=== PATIENT | female | born 1955 | race Caucasian/White ===

== ENCOUNTER 2018-02-24 17:26 | Observation (INO) ==
[2018-02-24] MEDS ORDERED: Nitroglycerin 1 INCH/GM PACKET TP ONE (17:30)
--- NOTE | 2018-02-24 17:32 | Emergency Department Note ---
Disposition Clinical Impression: Chest pain Qualifiers: Chest pain type: precordial pain Qualified Code(s): R07.2 - Precordial pain Disposition: Admitted As Inpatient Condition: Good Referrals: Arlene Piper CNP [Advanced Practice Nurse] - Forms: ED Satisfaction Letter Time of Disposition: 19:49 Chest Pain HPI - General Chief Complaint: ED Chest Pain Stated Complaint: Bilat shoulder pain, chest pain Time Seen by Provider: 02/24/18 17:30 Source: patient, EMS, other (Family care provider) Mode of arrival: EMS Limitations: no limitations Vital Signs Reviewed: Yes Nursing Notes Reviewed: Yes - History of Present Illness HPI Narrative: Patient states she has been having a headache in the upper back aches since yesterday. Today she has had a persistent "chest tightness" that is been present all day since awakening. She has had some nausea with this without vomiting as well as some shortness of breath. She denies diaphoresis. She states she has had a history of some jaw trouble in the past but she has had more jaw discomfort today as well. She developed some tingling of her face and hands. She decided to check her blood pressure and had a reading of 170/100. This blood pressure prompted her to go to her primary care provider. She received a dose of nitroglycerin and was referred here by EMS. She has received a second dose of nitroglycerin as well as 324 mg of aspirin. She states the tightness had been a 7-8 on a scale of 1-10 and she currently has no chest tightness. She still has some backache and headache. She denies that she has been having cough, fevers or chills. She has a lower extremity swelling , immobilization or injury. She denies any personal history of coronary artery disease or dysrhythmia. She denies history of diabetes, hypertension, elevated cholesterol, smoking, obesity, DVT or PE. She denies a family history of coronary artery disease. She does relate a previous history of some TIAs for which she has not had any problem since repair of a patent foramen ovale 6 years ago. Her chief complaint at this time is that she feels "just washed out ". EMS did transmit an EKG 2. These demonstrated a normal sinus rhythm with a rate of 60. She had prominent artifact on both tracings. There are no acute ST or T-wave changes to suggest ischemia or infarction. These were performed at 5:08 and 5:14 PM. The reviews are on my interpretation. Pt complaint: chest pain Onset (ago): hour(s) (10) Duration: constant, now resolved Onset: during rest Pain Location: substernal Severity: moderate Severity scale (1-10): 7 Quality: tightness Pain Radiation: jaw/teeth Improves with: nitroglycerin Worsens with: nothing Associated symptoms: Reports: nausea, dyspnea. Denies: vomiting, diaphoresis, syncope, palpitations, fever, cough, leg swelling Treatments prior to arrival chest pain: aspirin, nitroglycerin, oxygen - Related Data Home Medications Medication Instructions Recorded Confirmed Topiramate [Topamax] 100 mg PO BID 11/08/15 HYDROcodone/Acet 5/325 mg [[place] 1 tab PO Q6-8H PRN 02/24/18 02/24/18 5-325 mg] Loratadine [Claritin] 10 mg PO DAILY 02/24/18 02/24/18 Allergies Allergy/AdvReac Type Severity Reaction Status Date / Time acetaminophen [From Percocet] Allergy Itching Verified 02/24/18 17:30 aspirin [From Percodan] Allergy Itching Verified 02/24/18 17:30 Oxycodone [From Percocet] Allergy Itching Verified 02/24/18 17:30 All systems ED: reviewed and negative except as stated. Chest Pain PMH - Past Medical History Medical history: Reports: migraine, TIA (Secondary to patent foramen ovale), other (Patent foramen ovale with repair). Denies: COPD, DVT, diabetes, hyperlipidemia, hypertension, myocardial infarction, pulmonary embolus, thyroid disease Surgical history: Reports: other (Repair of patent foramen ovale approximately 2011) Psychiatric history: Reports: no psych history - Social History Smoking Status: Never smoker Alcohol use: Reports: none Drug use: Reports: none Physical Exam - General Limitations: no limitations General appearance: alert, in no apparent distress - Head Head exam: atraumatic, normocephalic, normal inspection - Eye Eye exam: Present: normal appearance, PERRL, EOMI. Absent: conjunctival injection - ENT ENT exam: normal exam, normal oropharynx, mucous membranes moist - Neck Neck exam: Present: normal inspection, full ROM, trachea midline - Chest Chest inspection: Present: normal inspection, symmetric chest wall rise - Respiratory Respiratory exam: Present: normal lung sounds bilaterally. Absent: respiratory distress, wheezes, prolonged expiratory phase - Cardiovascular Cardiovascular exam: Present: regular rate, normal rhythm, normal heart sounds. Absent: tachycardia - Abdominal Exam Abdominal exam: Present: soft, Non-Tender, normal bowel sounds. Absent: tenderness, distention, guarding, rebound, rigidity - Extremities Exam Extremities exam: Present: normal inspection, full ROM, normal capillary refill. Absent: tenderness, pedal edema, calf tenderness - Expanded Lower Extremity Exam Neurovascular/Tendon exam: Present: normal capillary refill. Absent: motor deficit, sensory deficit, tendon deficit Gait: observed and normal - Back Exam Back exam: Present: normal inspection, full ROM. Absent: tenderness, CVA tenderness (R), CVA tenderness (L) - Neurological Exam Neurological exam: Present: alert, oriented X3 - Psychiatric Psychiatric exam: Present: normal affect, normal mood. Absent: agitated, anxious - Skin Skin exam: Present: warm, dry, intact, normal color. Absent: diaphoresis, pallor Course Course Narrative: 1822: With the elevated d-dimer, CT PE study has been ordered. She states she takes [place] at home for pain and she is been given a dose for her headache. 1944: Patient's presentation and all testing has been discussed with the patient and ultimately with Dr. Valderrama. Dr. Valderrama is agreeable with her observation at this facility. Verbal orders have been obtained for her observation. Vital Signs Temperature 98.8 F 02/24/18 17:33 Pulse Rate 58 02/24/18 17:33 Respiratory Rate 13 02/24/18 17:33 Blood Pressure 139/74 02/24/18 17:33 O2 Sat by Pulse Oximetry 95 02/24/18 17:33 Temperature 98.8 F 02/24/18 17:33 Pulse Rate 70 02/24/18 19:19 Respiratory Rate 18 02/24/18 19:19 Blood Pressure 141/72 02/24/18 19:19 O2 Sat by Pulse Oximetry 96 02/24/18 19:19 Oxygen Delivery Oxygen Delivery Room Air Chest Pain - Differential Diagnosis Likely: atypical chest pain, costalchondritis, chest pain - Lab Data Lab results reviewed: Yes I reviewed the patient's lab results. Result diagrams: 02/24/18 17:52 02/24/18 17:52 Lab Results 02/24/18 02/24/18 02/24/18 Range/Units 17:52 17:52 17:52 WBC 7.2 (4.3-11.1) K/mcL RBC 3.62 L (3.82-4.97) M/mcL Hgb 13.1 (11.5-15.4) g/dL Hct 38.3 (35.3-44.9) % MCV 105.8 H (83.0-100.0) fL MCH 36.2 H (28.0-33.3) pg MCHC 34.2 (31.6-35.5) g/dL RDW 11.9 (11.5-14.5) % Plt Count 252 (140-400) K/mcL MPV 9.7 (9.4-12.4) fL Immature Gran % 0.3 (0-4) % Seg Neutrophils % 53.4 % Lymphocytes % 35.5 % Monocytes % 9.4 % Eosinophils % 0.7 % Basophils % 0.7 % Neutrophils # 3.9 (1.6-8.9) K/mcL Lymphocytes # 2.6 (0.6-4.6) K/mcL Monocytes # 0.7 (0.0-1.3) K/mcL Eosinophils # 0.1 (0.0-0.6) K/mcL Basophils # 0.1 (0.0-0.2) K/mcL PT 10.5 (9.4-12.1) Seconds INR 0.9 APTT 30.1 (26.0-36.0) Seconds D-Dimer 655 H (0-500) ng/mLFEU Sodium 141 (136-145) mEq/L Potassium 4.2 (3.5-5.1) mEq/L Chloride 108 H (98-107) mEq/L Carbon Dioxide 26 (23-29) mEq/L BUN 16 (8-23) mg/dL Creatinine 1.11 (0.60-1.20) mg/dL Est GFR ( Amer) > 60 (> 60) Est GFR (Non-Af Amer) 50 L (> 60) BUN/Creatinine Ratio 14 (6-26) Glucose 95 (70-105) mg/dL Calculated Osmolality 293 (280-300) Calcium 9.3 (8.6-10.3) mg/dL Troponin I < 0.03 (< 0.04) ng/mL - Radiology Data Radiology results reviewed: Yes I reviewed the patient's radiology results. Single view chest x-ray is performed. This does not demonstrate evidence for infiltrate, effusion, pneumothorax, foreign body or heart failure. The cardiac silhouette is normal. I do not see abnormality to the osseous structures of the chest. This is on my interpretation. Impressions Chest X-Ray 02/24/18 17:31 IMPRESSION: No acute abnormality. D/ / Maxx Miranda / Maxx Miranda Interpreting Provider: Maxx Miranda Impressions Chest X-Ray 02/24/18 17:31 IMPRESSION: No acute abnormality. D/ / Maxx Miranda / Maxx Miranda Interpreting Provider: Maxx Miranda Chest CTA 02/24/18 18:23 IMPRESSION: No evidence of pulmonary embolism or acute pulmonary abnormality. D/ / Joanne Pinon MD / Joanne Pinon MD Interpreting Provider: Joanne Pinon MD - EKG Data EKG attestation: Yes I reviewed and interpreted this EKG. EKG shows normal: sinus rhythm, axis, intervals, QRS complexes, ST-T waves Rate: bradycardia (51) Heart block present: 1st Degree Interpretation: no acute changes, normal EKG Heart Score - Score History: Moderately Suspicious EKG: Non Specific repolarisation Disturbance Age: 45-65 Risk Factors: 1-2 risk factors Troponin: Less than normal limit HEART Score Total: 4
[2018-02-24 17:58] LABS: Basophils # 0.1 K/mcL (0.0-0.2); Basophils % 0.7 %; Eosinophils # 0.1 K/mcL (0.0-0.6); Eosinophils % 0.7 %; Hematocrit 38.3 % (35.3-44.9); Hemoglobin 13.1 g/dL (11.5-15.4); Immature Granulocytes % 0.3 % (0-4); Lymphocytes # 2.6 K/mcL (0.6-4.6); Lymphocytes % 35.5 %; Mean Corpuscular HGB Conc 34.2 g/dL (31.6-35.5); Mean Corpuscular Hemoglobin 36.2 pg (28.0-33.3); Mean Corpuscular Volume 105.8 fL (83.0-100.0); Mean Platelet Volume 9.7 fL (9.4-12.4); Monocytes # 0.7 K/mcL (0.0-1.3); Monocytes % 9.4 %; Neutrophils # 3.9 K/mcL (1.6-8.9); Platelet Count 252 K/mcL (140-400); Red Blood Count 3.62 M/mcL (3.82-4.97); Red Cell Distribution Width 11.9 % (11.5-14.5); Segmented Neutrophils % 53.4 %
[2018-02-24 18:05] LABS: INR 0.9; Prothrombin Time 10.5 Seconds (9.4-12.1)
[2018-02-24 18:08] LABS: Activated Partial Thrombo Time 30.1 Seconds (26.0-36.0)
[2018-02-24 18:12] LABS: BUN/Creatinine Ratio 14 (6-26); Blood Urea Nitrogen 16 mg/dL (8-23); Calcium 9.3 mg/dL (8.6-10.3); Carbon Dioxide 26 mEq/L (23-29); Chloride 108 mEq/L (98-107); Glucose 95 mg/dL (70-105); Osmolality,Calculated 293 (280-300); Potassium 4.2 mEq/L (3.5-5.1); Sodium 141 mEq/L (136-145); eGFR For Non-African Americans 50 (> 60)
[2018-02-24 18:22] LABS: Troponin I < 0.03 ng/mL (< 0.04)
[2018-02-24] MEDS ORDERED: *HR* HYDROcodone/Acet 5/325 mg TABLET PO ONE (18:23)
[2018-02-24] MEDS ORDERED: Isovue-370 500 ML INFUS..BTL IV ONE ×2 (18:23→20:48)
[2018-02-24] MEDS ORDERED: *HR* HYDROcodone/Acet 5/325 mg TABLET PO PRN (20:48)
[2018-02-24] MEDS ORDERED: Naloxone 0.4 MG/ML INJ IVP PRN (20:48)
[2018-02-24] MEDS: 0.9 % Sodium Chloride 1,000 ML IVC SCH (21:40)
[2018-02-25] MEDS: 0.9 % Sodium Chloride 1,000 ML IVC SCH (05:22)
[2018-02-25] MEDS ORDERED: Nitroglycerin 1 INCH/GM PACKET TP SCH (06:00)
[2018-02-25] MEDS ORDERED: Loratadine 10 MG TABLET PO SCH (09:00)
[2018-02-25 10:45] VITALS: BP 128/68
--- NOTE | 2018-02-25 12:17 | Internal Med History&Physical ---
Date of Encounter: 02/25/18 Time of Encounter: 11:40 Assessment and Plan (1) Chest pain Current visit: Yes Status: Acute Now resolved. Etiology uncertain. Doubt myocardial ischemia from history and physical. Qualifiers: Chest pain type: precordial pain Qualified Code(s): R07.2 - Precordial pain (2) CKD (chronic kidney disease) stage 3, GFR 30-59 ml/min Current visit: Yes Status: Chronic She will discuss with her PCP about referral to a auto parts handler. (3) Macrocytosis without anemia Current visit: Yes Status: Chronic She reports workup by hematology/oncology physician have not shown etiology. Internal Medicine - H&P: HPI Chief complaint: Headache and chest discomfort Admitted From: Emergency Dept Plans for Post Hospital Care: Home History of present illness: Ms. Leahy is a 62 year old female who came to emergency room complaining of not feeling well onset February 22. She developed a headache morning of February 24 which did not resolve with use of [place]. Blood pressure check at home showed elevation at 170/110. She called her PCP office and was scheduled for same-day visit. Blood pressure was found to be elevated there. She was given a sublingual Nitrostat and directed to emergency room. She was evaluated in ER and found to have elevated d-dimer. Chest CTA was unremarkable. She was admitted to [facility] floor for ongoing care needs. She states she feels improved now and back to her baseline. Cardiovascular history is significant for PFO closure at [facility] in 2011. She does not have hypertension or history of PA heart failure DVT or pulmonary embolus. She reports she has had occasional "tightness" in her chest similar to the discomfort that she had yesterday on previous occasions but not consistent with exercise. She is uncertain if heart catheter was done at [place] prior to PFO closure in 2012. Past Med Surg Social Fam HX - Past Medical History Medical history: migraine, TIA, other Additional medical history: multiple TIAs; Patent Foramen Ovale Psychiatric history: depression - Past Surgical History Surgical History: hysterectomy Additional surgical history: Patent Foramen Ovale closure 7yrs ago; rib removal ; fatty tumor removal - Social History Smoking Status: Never smoker Smokeless Tobacco Status: No Alcohol use: none Drug use: none - Family History Father Living Status: Cause of : Colon Ca. Hx Family Cancer: Yes (Colon Ca) Sister Living Status: Still Living Hx Family Cancer: Yes (Breast Ca.) Internal Medicine - H&P: Meds Topiramate [Topamax] 100 mg PO BID 11/08/15 [History] HYDROcodone/Acet 5/325 mg [[place] 5-325 mg] 1 tab PO Q6-8H PRN 02/24/18 [History] Loratadine [Claritin] 10 mg PO DAILY 02/24/18 [History] 3 Allergy/AdvReac Type Severity Reaction Status Date / Time aspirin [From Percodan] Allergy Itching Verified 02/24/18 17:30 Oxycodone [From Percocet] Allergy Itching Verified 02/24/18 17:30 All Systems PM: A 10-system review of systems was performed and is negative for pertinent findings except as documented above in the HPI. Review of systems: Gen.: She states her weight has been stable the past few months Cardiovascular: As per history of present illness Respiratory: She is a lifelong nonsmoker and has no known chronic lung disease GI: She denies disorders of her liver gallbladder or exocrine pancreas. : She has history of kidney stones remotely. She was told in the past on one occasion her kidneys were "not working right". She saw a urologist who did not order further workup or intervention. She has not seen a auto parts handler. Neurologic: She reports she had multiple mini strokes prior to PFO closure in 2011. These frequently resulted in right hemiparesis. She has had diplopia on 1 occasion which also resolved. She has history of migraine headaches. She denies seizures. Endocrine: She denies diabetes thyroid disease or hyperlipidemia Hematology/oncology: She has chronic macrocytosis. She was told in the past she might have sickle cell disease. She denies other blood disorders or malignancies. Psychiatric: She has feelings of depression but does not take medication. She denies anxiety or other mental health issues. Musculoskeletal: She had left first rib removed for thoracic outlet syndrome. She has DJD but denies gout or other bone joint or muscle disorders. - Constitutional Vitals: Temp Pulse Resp BP Pulse Ox 98 F 69 16 128/68 96 02/25/18 10:44 02/25/18 10:44 02/25/18 10:44 02/25/18 10:44 02/25/18 10:44 Exam: Gen.: She is a well-developed well-nourished female resting comfortably in bed who appears in no acute distress at present time. HEENT: Head is atraumatic and normocephalic. Eyes: EOMI. There is no scleral icterus. Mouth: Mucosa is moist. Neck: Supple and nontender. There is no thyromegaly or adenopathy noted. Heart: Regular without murmurs gallops or ectopics Lungs: No wheezes or crackles are heard. Abdomen: Soft and nontender. No masses or guarding are noted. Extremities: There is no cyanosis edema or clubbing noted. Dorsalis pedis and posttibial pulses are 1-2 over 2 bilaterally. Neurologic: Mental status: She is talkative and a good historian. Cranial nerves: Smile is symmetric. Forehead wrinkles bilaterally. Tongue protrudes midline. EOMI. Motor: There is no pronator drift. Cerebellar: Finger to nose is intact bilaterally. Skin: Warm and dry Internal Med - H&P Results - Labs CBC & Chem 7: 02/24/18 17:52 02/24/18 17:52 Labs: Cardiac Enzymes 02/24/18 02/25/18 Range/Units 23:39 06:00 Troponin I < 0.03 < 0.03 (< 0.04) ng/mL - VTE Documentation of Mechanical Device: Graduated compression elastic hosiery
--- NOTE | 2018-02-25 12:27 | Discharge Summary ---
Date of Encounter: 02/25/18 Time of Encounter: 11:40 - Discharge Diagnosis (1) Chest pain Priority: Primary Status: Resolved Qualifiers: Chest pain type: precordial pain Qualified Code(s): R07.2 - Precordial pain (2) CKD (chronic kidney disease) stage 3, GFR 30-59 ml/min Priority: Secondary Status: Chronic (3) Macrocytosis without anemia Priority: Secondary Status: Chronic Hospital course: Ms. Leahy is a 62 year old female who came to emergency room complaining of not feeling well onset February 22. She developed a headache morning of February 24 which did not resolve with use of [place]. Blood pressure check at home showed elevation at 170/110. She called her PCP office and was scheduled for same-day visit. Blood pressure was found to be elevated there. She was given a sublingual Nitrostat and directed to emergency room. She was evaluated in ER and found to have elevated d-dimer. Chest CTA was unremarkable. She was admitted to [facility] for ongoing care needs. Initial orders were written by the emergency room physician. I saw her on February 25 and performed the history physical and discharge. Repeat cardiac enzymes showed no evidence of myocardial damage. Chest CTA in emergency room was unremarkable. When I saw her she was asymptomatic. The etiology of her discomfort was not determined with certainty. She felt improved and stable for discharge home. She reported she had contacted her physicians in [place] and will be following up there as soon as an appointment can be made. She will follow with her local PCP Dr. Ruiz within 1 week. She will discuss with her PCP about referral to a sap abap programmer. - Time Spent with Patient Total time spent providing and/or coordinating discharge services: - Discharge Medications Home Medications: Topiramate [Topamax] 100 mg PO BID 11/08/15 [History] HYDROcodone/Acet 5/325 mg [[place] 5-325 mg] 1 tab PO Q6-8H PRN 02/24/18 [History] Loratadine [Claritin] 10 mg PO DAILY 02/24/18 [History] Allergies/Adverse Reactions: 3 Allergy/AdvReac Type Severity Reaction Status Date / Time aspirin [From Percodan] Allergy Itching Verified 02/24/18 17:30 Oxycodone [From Percocet] Allergy Itching Verified 02/24/18 17:30 Date of admission: 02/24/18 19:55 Primary care physician: Luis Ruiz MD - Constitutional Vitals: Temp Pulse Resp BP Pulse Ox 98 F 69 16 128/68 96 02/25/18 10:44 02/25/18 10:44 02/25/18 10:44 02/25/18 10:44 02/25/18 10:44 - Patient Status Disposition: Home, Self-Care Condition: Good - Discharge Instructions Follow Up With: Luis Ruiz MD [Primary Care Provider] - 1 week - Diet and Activity Activity: resume usual activities as tolerated Diet: advance to your usual diet - VTE Documentation of Mechanical Device: Graduated compression elastic hosiery
--- NOTE | 2018-02-28 10:03 | Electrocardiograph Report ---
[address] [address] Test Date: 2018-02-24 Pat Name: Jayla Leahy Department: [id number] Room: [facility] Gender: F Director Of Business Continuity: [id number] : 1955 Requested By: Hector Astudillo Order Number: [id number] Reading MD: Gabo Chan Measurements Intervals [place] Rate: 51 P: 78 NV: 214 QRS: 65 QRSD: 86 T: 78 QT: 388 QTc: 363 Interpretive Statements SINUS BRADYCARDIA WITH FIRST DEGREE AV BLOCK Electronically Signed On 02-28-2018 10:02:33 EDT by Gabo Chan
== END 2018-02-25 13:42 | disposition home or self-care (01) ==
LOC: INPPIK 17:26 → EMEROOPIK 17:26 → INPPIK 20:53
PROVIDERS: ADMIT Internal Medicine; ATTEND Internal Medicine